=== PATIENT | female | born 1955 | race Caucasian/White ===

== ENCOUNTER 2017-10-03 06:38 | Inpatient (IN) | payer BC ==
[2017-10-03] MEDS ORDERED: DEXAMETHASONE 2 MG TAB (08:23)
[2017-10-03] MEDS ORDERED: GABAPENTIN 300 MG CAP (08:23)
[2017-10-03] MEDS ORDERED: DEXAMETHASONE 1 MG TAB (08:25)
[2017-10-03] MEDS: GABAPENTIN 300 MG CAP PO ×2 (08:26→20:57)
[2017-10-03] MEDS: DEXAMETHASONE 1 MG TAB PO (08:27)
[2017-10-03] MEDS ORDERED: MIDAZOLAM 1 MG/ML 2 ML INJ (09:11)
[2017-10-03] MEDS ORDERED: METOCLOPRAMIDE 10 MG INJ (09:11)
[2017-10-03] MEDS ORDERED: morphine SULFATE/PF (10 MG/10 ML) INJ (09:12)
[2017-10-03] MEDS ORDERED: FENTAnyl 50 MCG/ML VIAL (09:31)
[2017-10-03] MEDS ORDERED: PROPOFOL 0 ML (09:34)
[2017-10-03] MEDS ORDERED: PROPOFOL 100 ML ×2 (09:34→09:38)
[2017-10-03] MEDS ORDERED: ONDANSETRON 4 MG INJ (09:34)
[2017-10-03] MEDS ORDERED: DEXAMETHASONE 4 MG/ML 1 ML INJ (09:35)
[2017-10-03] MEDS ORDERED: KETOROLAC 30 MG INJ (09:38)
[2017-10-03] MEDS ORDERED: ACETAMINOPHEN 1000MG/100ML IV 100 ML (09:38)
[2017-10-03] MEDS ORDERED: THROMBIN 5000 UNIT VIAL (09:45)
[2017-10-03] MEDS ORDERED: CA CHLORIDE 10% 10 ML SYRINGE (09:46)
[2017-10-03] MEDS ORDERED: EPHEDrine SULFATE 50 MG/5 ML SYG (09:47)
[2017-10-03] MEDS ORDERED: CEFAZOLIN 1 GM INJ (09:47)
[2017-10-03] MEDS: POLYMYXIN/BACITRACIN 1L IRRIG IRR (09:54)
[2017-10-03] MEDS: BUPIVACAINE 0.75%/DEXT (SPINAL) 2 ML INJ (09:54)
[2017-10-03] MEDS ORDERED: PHENYLephrine (100 MCG/ML) 5ML SYG (10:14)
[2017-10-03] MEDS ORDERED: OXYCODONE/ACETAMINOPHEN (5/325) TAB PO (11:00)
[2017-10-03] MEDS ORDERED: morphine 2 MG INJ IV (11:00)
[2017-10-03] MEDS ORDERED: DIPHENHYDRAMINE 50 MG INJ IV (11:00)
[2017-10-03] MEDS ORDERED: MAGNESIUM HYDROXIDE 30ML CUP PO (11:00)
[2017-10-03] MEDS ORDERED: ACETAMINOPHEN 500 MG TAB PO (11:00)
[2017-10-03] MEDS ORDERED: ONDANSETRON 4 MG INJ IV ×2 (11:00→11:30)
[2017-10-03] MEDS ORDERED: ZOLPIDEM 5 MG TAB PO (11:00)
[2017-10-03] MEDS: PROVENTIL HFA 6.7GM INHALER INH ×3 (11:00→23:00)
[2017-10-03] MEDS ORDERED: METOCLOPRAMIDE 10 MG INJ IV (11:30)
[2017-10-03] MEDS ORDERED: HYDROmorphONE (0.2 MG/ML) 10ML SYG IV ×3 (11:30)
[2017-10-03] MEDS ORDERED: TRANEXAMIC ACID 1,000 MG in DEXTROSE 5% 100 ML IV (12:00)
[2017-10-03 12:11] LABS: ADD MAN DIFF? NO
[2017-10-03 12:44] LABS: BASOPHILS % 0.3 % (0.0-2.0); EOSINOPHILS # 0.1 10^3/ul (0.0-0.5); EOSINOPHILS % 0.6 % (0.0-7.0); HEMATOCRIT 38.1 % (37.0-47.0); HEMOGLOBIN 12.8 g/dl (12.0-16.0); LYMPHOCYTES # 1.8 10^3/ul (0.8-2.9); LYMPHOCYTES % 17.9 % (15.0-51.0); MEAN CORPUSCULAR HEMOGLOBIN 33.7 pg (29.0-33.0); MEAN CORPUSCULAR HGB CONC 33.6 g/dl (32.0-37.0); MEAN CORPUSCULAR VOLUME 100.3 fl (82.0-101.0); MEAN PLATELET VOLUME 12.3 fl (7.4-10.4); MONOCYTE # 0.3 10^3/ul (0.3-0.9); MONOCYTES % 2.9 % (0.0-11.0); NEUTROPHIL # 7.9 10^3/ul (1.6-7.5); NEUTROPHILS % 77.5 % (39.0-77.0); PLATELET COUNT 184 10^3/UL (140-415); RED CELL DISTRIBUTION WIDTH 12.9 % (11.5-14.5)
[2017-10-03 12:44] LABS: WHITE BLOOD COUNT 10.2 10^3/ul (4.8-10.8)
[2017-10-03] MEDS: CEFAZOLIN 2 GM/50 ML (PMX) 50 ML IVPB ×2 (13:00→15:41)
[2017-10-03] MEDS ORDERED: BUPIVACAINE 0.5% (SDV) 30 ML, morphine SULFATE (PF) 8 MG, EPINEPHrine 0.3 MG, KETOROLAC... IRR (13:00)
[2017-10-03] MEDS ORDERED: TRANEXAMIC ACID 1,000 MG in DEXTROSE 5% 100 ML IVPB (13:00)
[2017-10-03] MEDS: SOD CHLORIDE 0.9% 100 ML, TRANEXAMIC ACID 3,000 MG IRR (13:00)
[2017-10-03] MEDS: CEFAZOLIN 1 GM/50 ML (PMX) 50 ML IVPB ×2 (13:10→22:13)
[2017-10-03] MEDS: LACTATED RINGER'S 1,000 ML IV ×2 (15:40→17:50)
[2017-10-03] MEDS: morphine 2 MG INJ IV (15:40)
[2017-10-03] MEDS: DEXAMETHASONE 2 MG TAB PO ×2 (15:42→19:14)
[2017-10-03] MEDS ORDERED: HYDROmorphONE 0.5 MG/0.5 ML SYG IV ×2 (16:58→17:00)
[2017-10-03] MEDS: SCOPOLAMINE 1.5 MG PATCH TRANSDERM (17:31)
[2017-10-03] MEDS: HYDROmorphONE 0.5 MG/0.5 ML SYG IV (17:31)
[2017-10-03] MEDS: OXYCODONE/ACETAMINOPHEN (5/325) TAB PO (19:14)
[2017-10-03] MEDS: SENNA/DOCUSATE NA (8.6MG/50MG) TAB PO (21:10)
[2017-10-04] MEDS: DEXAMETHASONE 2 MG TAB PO ×2 (00:07→06:18)
[2017-10-04] MEDS: PROVENTIL HFA 6.7GM INHALER INH (05:00)
[2017-10-04 05:08] LABS: ADD MAN DIFF? NO
[2017-10-04 05:12] LABS: WHITE BLOOD COUNT 14.8 10^3/ul (4.8-10.8)
[2017-10-04 05:12] LABS: BASOPHILS % 0.1 % (0.0-2.0); HEMATOCRIT 34.3 % (37.0-47.0); HEMOGLOBIN 11.6 g/dl (12.0-16.0); LYMPHOCYTES # 1.7 10^3/ul (0.8-2.9); LYMPHOCYTES % 11.2 % (15.0-51.0); MEAN CORPUSCULAR HEMOGLOBIN 33.5 pg (29.0-33.0); MEAN CORPUSCULAR HGB CONC 33.8 g/dl (32.0-37.0); MEAN CORPUSCULAR VOLUME 99.1 fl (82.0-101.0); MEAN PLATELET VOLUME 12.7 fl (7.4-10.4); MONOCYTES % 6.5 % (0.0-11.0); NEUTROPHIL # 12.1 10^3/ul (1.6-7.5); NEUTROPHILS % 81.7 % (39.0-77.0); PLATELET COUNT 169 10^3/UL (140-415); RED BLOOD COUNT 3.46 10^6/ul (4.20-5.40); RED CELL DISTRIBUTION WIDTH 12.9 % (11.5-14.5)
[2017-10-04] MEDS: PANTOPRAZOLE (EC) 40 MG TAB PO (06:18)
[2017-10-04] MEDS: CEFAZOLIN 1 GM/50 ML (PMX) 50 ML IVPB (06:18)
[2017-10-04] MEDS: LACTATED RINGER'S 1,000 ML IV ×2 (06:43→16:43)
[2017-10-04] MEDS: SENNA/DOCUSATE NA (8.6MG/50MG) TAB PO ×2 (09:57→20:44)
[2017-10-04] MEDS: METOPROLOL (XL) 25 MG TAB PO (09:58)
[2017-10-04] MEDS: OXYCODONE/ACETAMINOPHEN (5/325) TAB PO ×3 (09:59→20:44)
[2017-10-04] MEDS: VALSARTAN 160 MG TAB PO (09:59)
[2017-10-04] MEDS ORDERED: KETOROLAC 15 MG INJ IV (10:30)
[2017-10-04] MEDS: ASPIRIN 81 MG TAB PO (11:08)
[2017-10-04] MEDS: ALBUTEROL HFA 8 GM INHALER INH ×2 (13:52→20:45)
[2017-10-04] MEDS: GABAPENTIN 300 MG CAP PO (20:44)
[2017-10-05] MEDS: OXYCODONE/ACETAMINOPHEN (5/325) TAB PO ×3 (01:33→10:25)
[2017-10-05] MEDS: ALBUTEROL HFA 8 GM INHALER INH (02:00)
[2017-10-05] MEDS: LACTATED RINGER'S 1,000 ML IV (04:09)
[2017-10-05 05:38] LABS: WHITE BLOOD COUNT 13.2 10^3/ul (4.8-10.8)
[2017-10-05 05:38] LABS: ABNORMAL IP MESSAGE 1; ADD MAN DIFF? NO; BASOPHILS % 0.2 % (0.0-2.0); EOSINOPHILS % 0.2 % (0.0-7.0); HEMATOCRIT 32.9 % (37.0-47.0); HEMOGLOBIN 11.2 g/dl (12.0-16.0); LYMPHOCYTES # 4.2 10^3/ul (0.8-2.9); LYMPHOCYTES % 32.1 % (15.0-51.0); MEAN CORPUSCULAR HEMOGLOBIN 34.5 pg (29.0-33.0); MEAN CORPUSCULAR VOLUME 101.2 fl (82.0-101.0); MEAN PLATELET VOLUME 13.1 fl (7.4-10.4); MONOCYTE # 1.1 10^3/ul (0.3-0.9); MONOCYTES % 8.1 % (0.0-11.0); NEUTROPHIL # 7.8 10^3/ul (1.6-7.5); NEUTROPHILS % 58.9 % (39.0-77.0); PLATELET COUNT 174 10^3/UL (140-415); RED BLOOD COUNT 3.25 10^6/ul (4.20-5.40); RED CELL DISTRIBUTION WIDTH 12.9 % (11.5-14.5)
[2017-10-05 05:53] LABS: POSITIVE DIFF @See below
[2017-10-05] MEDS: PANTOPRAZOLE (EC) 40 MG TAB PO (06:06)
[2017-10-05] MEDS: SENNA/DOCUSATE NA (8.6MG/50MG) TAB PO (08:13)
[2017-10-05] MEDS: VALSARTAN 160 MG TAB PO (08:13)
[2017-10-05] MEDS: ASPIRIN 81 MG TAB PO (08:13)
[2017-10-05] MEDS: METOPROLOL (XL) 25 MG TAB PO (08:13)
== END 2017-10-05 12:35 | disposition home or self-care (01) | DRG 470 ==
LOC: REC 06:38 → MS1 13:27
PROVIDERS: Orthopaedic Surgery
PROC: 0SR904A Replacement of Right Hip Joint with Ceramic on Polyethylene Synthetic Substitute, Uncemented, Open Approach (ICD-10-PCS; principal; 2017-10-03 09:11)
DX: M16.11 Unilateral primary osteoarthritis, right hip (principal); J45.909 Unspecified asthma, uncomplicated; J44.9 Chronic obstructive pulmonary disease, unspecified; I10 Essential (primary) hypertension; E66.9 Obesity, unspecified; Z68.27 Body mass index [BMI] 27.0-27.9, adult; E78.5 Hyperlipidemia, unspecified; K21.9 Gastro-esophageal reflux disease without esophagitis
CPT/HCPCS: 72170; 73530; 85025; 86999; 87086; 97110; 97116; 97162; 97530